=== PATIENT | female | born 1980 | race Caucasian/White ===

== ENCOUNTER 2016-06-05 13:21 | Emergency (ER) ==
[2016-06-05 13:28] VITALS: BP 147/90; TEMP 99.8; BMI 30.9
--- NOTE | 2016-06-05 14:43 | ED.PDOC ---
General ED Provider: Dr. ANABELL FREEMAN Chief Complaint: Non-specific Complaint Stated Complaint: EYE FLOATERS, SPOTS Time Seen by Physician: 13:30 (PROBLEM RESOLVED ON ARRIVAL) Mode of Arrival: Walk-In Information Source: Patient Nursing and Triage Documentation Reviewed and Agree: Yes (IN [facility] PT HAS A BRIEF EPISODE OF SPOTS / FLOATERS ) EENT Complaint Exam - Eye Complaint/Exam Onset/Duration: 1 HR AGO Symptoms Are: Resolved Initial Severity: Mild Current Severity: None Location: Left Character: Denies: Dull, Throbbing, Foreign body sensation Aggravating: Reports: None Alleviating: Reports: None Associated Signs and Symptoms: Denies: Photophobia, Clear drainage, Purulent drainage, Vision impairment, Fever, Swelling Eye Surgical History: Reports: None Penetrating Injury Risk Factors: None Globe Rupture Risk Factors: None Acute Glaucoma Risk Factors: None Visual Field: Normal Extraocular Movement: Normal Orbit Findings: Normal Globe Findings: Intact Lid Findings: Normal Corneal Findings: Clear Fundi: Normal Slit Lamp Used: No Review of Systems - Review Of Systems Constitutional: Reports: No symptoms Eyes: Reports: Blurred vision, Other (FLOATERS ) Ears, Nose, Mouth, Throat: Reports: No symptoms Respiratory: Reports: No symptoms Cardiac: Reports: No symptoms GI: Reports: No symptoms : Reports: No symptoms Musculoskeletal: Reports: No symptoms Skin: Reports: No symptoms Neurological: Reports: No symptoms Endocrine: Reports: No symptoms Hematologic/Lymphatic: Reports: No symptoms All Other Systems: Reviewed and Negative Past Medical History - Past Medical History Previously Healthy: Yes Endocrine: Reports: None Cardiovascular: Reports: None Respiratory: Reports: None Hematological: Reports: None Gastrointestinal: Reports: None Genitourinary: Reports: UTI, Kidney stones, Urosepsis Neuro/Psych: Reports: Anxiety Musculoskeletal: Reports: Back Pain ( chronic back pain) Cancer: Reports: None Last Menstrual Period: may 06 - Surgical History General Surgical History: Reports: Tubal ligation, (c-cection 2012 ) - Family History Family History: Reports: Unknown - Social History Smoking Status: Current every day smoker Hx Substance Use: No Alcohol Screening: None Physical Exam - Physical Exam Appearance: Well-appearing, No pain distress, Well-nourished Eyes: LILA, EOMI, Conjunctiva clear ENT: Ears normal, Nose normal, Oropharynx normal Respiratory: Airway patent, Breath sounds clear, Breath sounds equal, Respirations nonlabored Cardiovascular: RRR, Pulses normal, No rub, No murmur GI/: Soft, Nontender, No masses, Bowel sounds normal, No Organomegaly Musculoskeletal: Normal strength, ROM intact, No edema, No calf tenderness Skin: Warm, Dry, Normal color Neurological: Sensation intact, Motor intact, Reflexes intact, Cranial nerves intact, Alert, Oriented Psychiatric: Affect appropriate, Mood appropriate Critical Care Note - Critical Care Note Total Time (mins): 0 Course - Course Orders, Labs, Meds: Orders Category Date Time Status CT IAC/ORBIT/P.FOSSA W/O CONTR Stat RADS 06/05/16 14:13 Ordered Vital Signs: Temp Pulse Resp BP Pulse Ox 06/05/16 13:21 99.8 F H 84 20 147/90 H 98 Departure - Departure Time of Disposition: 14:43 (REFUSED TO WAIT FOR ORBIT CT) Disposition: AMA Discharge Problem: Left eye strain Instructions: Eye Pain (ED) Condition: Good Pt referred to PMD for follow-up: No Additional Instructions: Please call your Family Physician as soon as possible to schedule a follow-up appointment. Allergies/Adverse Reactions: Allergies morphine Adverse Reaction (Verified 06/05/16 13:30) Home Medications: Ambulatory Orders Alprazolam [Xanax] 0.5 mg PO BID 05/21/13 Disposition Discussed With: Patient
== END 2016-06-05 14:45 | disposition left against medical advice (07) ==
LOC: ED 13:21
DX: H53.10 Unspecified subjective visual disturbances (principal); F17.210 Nicotine dependence, cigarettes, uncomplicated
CPT/HCPCS: 99284

== ENCOUNTER 2016-08-09 12:59 | Emergency (ER) ==
[~2016-08-09 12:59] MED LIST: ATIVAN PO STA
[2016-08-09 13:33] LABS: BASOPHILS % (AUTO) 0.4 % (0.0-3.0); EOSINOPHILS # (AUTO) 0.3 K/ul (0.0-0.7); HEMATOCRIT 41.3 % (37.0-47.0); HEMOGLOBIN 14.5 g/dl (12.0-16.0); IMMATURE GRANULOCYTE % (AUTO) 0.2 % (0.0-5.0); LYMPHOCYTES # (AUTO) 3.6 K/uL (0.60-3.4); LYMPHOCYTES % (AUTO) 39.4 (10.0-50.0); MEAN CORPUSCULAR HEMOGLOBIN 31.1 pg (27.0-31.0); MEAN CORPUSCULAR HGB CONC 35.1 (31.8-35.4); MEAN CORPUSCULAR VOLUME 88.6 fl (81.0-99.0); MONOCYTES # (AUTO) 0.7 K/uL (0.4-2.0); MONOCYTES % (AUTO) 7.7 (0-10); NEUTROPHILS # (AUTO) 4.5 K/ul (2.0-6.9); NEUTROPHILS % (AUTO) 49.3; PLATELET COUNT 366 10^3/uL (140-440); RED BLOOD COUNT 4.66 10^6/ul (4.20-5.40); WHITE BLOOD COUNT 9.22 K/ul (4.6-10.2)
[2016-08-09 13:54] VITALS: TEMP 98.2; BMI 28.3
[2016-08-09 13:57] VITALS: BP 146/91
[2016-08-09 14:20] LABS: ACETAMINOPHEN < 3 ug/ml (10-30); ALANINE AMINOTRANSFERASE 15 U/L (12-78); ALBUMIN 3.6 g/dL (3.4-5.0); ALBUMIN/GLOBULIN RATIO 1.09; ALKALINE PHOSPHATASE 73 U/L (42-98); ANION GAP 11.9; ASPARTATE AMINO TRANSFERASE 15 U/L (15-37); BILIRUBIN,TOTAL 0.58 mg/dL (0.00-1.20); BLOOD UREA NITROGEN 6 mg/dL (7-18); BUN/CREATININE RATIO 7.14; CARBON DIOXIDE 20 mmol/L (21-32); CHLORIDE 112 mmol/L (98-107); CREATININE 0.84 mg/dL (0.60-1.30); GLUCOSE 74 mg/dL (70-110); POTASSIUM 3.9 mmol/L (3.5-5.10); SALICYLATE < 5.0 mg/dL (2.8-20.0); SODIUM 140 mmol/L (136-145); TOTAL PROTEIN 6.9 g/dL (6.4-8.2)
[2016-08-09] MEDS ORDERED: ATIVAN PO STA ×2 (15:54→16:25)
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
[2016-08-09 18:53] LABS: COCAIN SCREEN,URINE NEGATIVE (NEGATIVE)
== END 2016-08-09 18:42 | disposition home or self-care (01) ==
LOC: ED 12:59
DX: R41.82 Altered mental status, unspecified (principal); F19.10 Other psychoactive substance abuse, uncomplicated; F15.10 Other stimulant abuse, uncomplicated; L98.9 Disorder of the skin and subcutaneous tissue, unspecified; F17.210 Nicotine dependence, cigarettes, uncomplicated
CPT/HCPCS: 36415; 80053; 80306; 80307; 84443; 85025; 93005; 93010; 99284

== ENCOUNTER 2016-09-14 14:33 | Emergency (ER) ==
[2016-09-14 14:41] VITALS: BP 155/71; TEMP 100.2; BMI 29.4
--- NOTE | 2016-09-14 14:45 | ED.PDOC ---
General ED Provider: Dr. ANUSHKA PALMA JR Chief Complaint: Hand Pain/Injury Stated Complaint: swelling to hands--is very anxious--tearful--states has had issues with drugs in past but has not "done anything past week"--has very several lesions to legs/arms--has had staph in past[End]4weeks 100.2 106 20 96% 155/71 has sm bruises to legs--also multiple lesions noted--none draining-most prominent lesion left occiput does hace shotty lymph nodes but no cellulitis despite several open sites: pot/meth at times/ "pills" Time Seen by Physician: 14:45 Mode of Arrival: Walk-In Information Source: Patient Exam Limitations: No limitations Nursing and Triage Documentation Reviewed and Agree: No Review of Systems - Review Of Systems Constitutional: Reports: Malaise, Weakness Eyes: Reports: No symptoms Ears, Nose, Mouth, Throat: Reports: No symptoms Respiratory: Reports: No symptoms Cardiac: Reports: No symptoms GI: Reports: No symptoms : Reports: Other (labial bruise(not eval)) Musculoskeletal: Reports: Joint pain (bilateral MCP#2#3), Muscle pain Skin: Reports: Bruising (small benign appearing bruises on thighs), Lesions ( many picked sites none appear infected) Neurological: Reports: Anxiety, Emotional problems, Other Endocrine: Denies: Unexplained weight gain, Unexplained weight loss Hematologic/Lymphatic: Reports: Easy bruising All Other Systems: Other Past Medical History - Past Medical History Previously Healthy: Yes Endocrine: Reports: None Cardiovascular: Reports: None Respiratory: Reports: None Hematological: Reports: None Gastrointestinal: Reports: GERD Genitourinary: Reports: UTI, Kidney stones, Urosepsis, CKD Neuro/Psych: Reports: Anxiety, Other (psychosis) Musculoskeletal: Reports: Back Pain ( chronic back pain) Cancer: Reports: None Last Menstrual Period: 3 weeks ago Other Pertinent Past Medical History: cysts psychosis - Surgical History General Surgical History: Reports: Tubal ligation, (c-cection 2012 ) - Family History Family History: Reports: Unknown - Social History Smoking Status: Current every day smoker, Light tobacco smoker Hx Substance Use: Yes (pot/meth at times/ "pills") Alcohol Screening: None Physical Exam - Physical Exam Appearance: Well-appearing Pain Distress: Mild Eyes: LILA, EOMI, Conjunctiva clear ENT: Ears normal, Nose normal, Oropharynx normal Neck: Supple Respiratory: Airway patent, Breath sounds clear, Breath sounds equal, Respirations nonlabored Cardiovascular: RRR, Pulses normal, No rub, No murmur GI/: Soft, Nontender, No masses, Bowel sounds normal, No Organomegaly Musculoskeletal: Normal strength, ROM intact, No edema, No calf tenderness Skin: Warm, Dry (as noted) Neurological: Sensation intact, Alert, Oriented Psychiatric: Anxious Critical Care Note - Critical Care Note Total Time (mins): 20 Course - Course Hematology/Chemistry: 09/14/16 15:30 Orders, Labs, Meds: Lab Review 09/14/16 15:30 WBC 6.58 RBC 4.61 Hgb 14.4 Hct 41.7 MCV 90.5 MCH 31.2 H MCHC 34.5 RDW Coeff of Lynette 13.5 Plt Count 274 Immature Gran % (Auto) 0.0 Neut % (Auto) 39.0 Lymph % (Auto) 47.9 [place] % (Auto) 7.3 Eos % (Auto) 5.0 Baso % (Auto) 0.8 Immature Gran # (Auto) 0.0 Neut # 2.6 Lymph # 3.2 [place] # 0.5 Eos # 0.3 Baso # 0.1 Orders Category Date Time Status CBC W/ AUTO DIFF Stat LAB 09/14/16 15:30 Completed Vital Signs: Temp Pulse Resp BP Pulse Ox 09/14/16 14:33 100.2 F H 106 H 20 155/71 H 96 Departure - Departure Time of Disposition: 16:06 Disposition: HOME SELF-CARE Discharge Problem: Hand pain, Skin lesions, generalized Instructions: Arthralgia (ED) Condition: Good Pt referred to PMD for follow-up: Yes Additional Instructions: hand symptoms should resolve quickly no evidence serious disease (except behavior history) may rub hands with skin anesthetic like benzocaine aspercreme or menthol but should not change time to resolution may try flexeril for spasms recheck PMD one week for resolution of pain skin lesions appear to be healing well do not pick , may use warm soaks if rising to surface no antibiotics at this time Prescriptions: Naproxen [Naprosyn] 500 mg PO Q12HR PRN #30 tablet PRN Reason: PAIN Cyclobenzaprine HCl [Flexeril] 5 mg PO TID PRN #15 tablet PRN Reason: Spasms Allergies/Adverse Reactions: Allergies morphine Adverse Reaction (Verified 09/14/16 14:44) Home Medications: Ambulatory Orders Alprazolam [Xanax] 0.5 mg PO BID 05/21/13 Cyclobenzaprine HCl [Flexeril] 5 mg PO TID PRN #15 tablet 09/14/16 Naproxen [Naprosyn] 500 mg PO Q12HR PRN #30 tablet 09/14/16
[2016-09-14 15:36] LABS: BASOPHILS # (AUTO) 0.1 K/uL (0-0.2); BASOPHILS % (AUTO) 0.8 % (0.0-3.0); EOSINOPHILS # (AUTO) 0.3 K/ul (0.0-0.7); HEMATOCRIT 41.7 % (37.0-47.0); HEMOGLOBIN 14.4 g/dl (12.0-16.0); LYMPHOCYTES # (AUTO) 3.2 K/uL (0.60-3.4); LYMPHOCYTES % (AUTO) 47.9 (10.0-50.0); MEAN CORPUSCULAR HEMOGLOBIN 31.2 pg (27.0-31.0); MEAN CORPUSCULAR HGB CONC 34.5 (31.8-35.4); MEAN CORPUSCULAR VOLUME 90.5 fl (81.0-99.0); MONOCYTES # (AUTO) 0.5 K/uL (0.4-2.0); MONOCYTES % (AUTO) 7.3 (0-10); NEUTROPHILS # (AUTO) 2.6 K/ul (2.0-6.9); PLATELET COUNT 274 10^3/uL (140-440); RED BLOOD COUNT 4.61 10^6/ul (4.20-5.40); WHITE BLOOD COUNT 6.58 K/ul (4.6-10.2)
== END 2016-09-14 16:40 | disposition home or self-care (01) ==
LOC: ED 14:33
DX: L98.9 Disorder of the skin and subcutaneous tissue, unspecified (principal); M79.643 Pain in unspecified hand; S80.12XA Contusion of left lower leg, initial encounter; S80.11XA Contusion of right lower leg, initial encounter; F17.210 Nicotine dependence, cigarettes, uncomplicated
CPT/HCPCS: 36415; 85025; 99282

== ENCOUNTER 2016-10-01 20:42 | Emergency (ER) ==
[2016-10-01 20:49] VITALS: BP 128/74; TEMP 98.6; BMI 29.2
--- NOTE | 2016-10-01 21:10 | ED.PDOC ---
General ED Provider: Dr. TONY DELAROSA Chief Complaint: Rash Stated Complaint: Edin is a36 year old who compalins of sores on legs, arms, head, back, butt for week She thought it was lice and still thinks it is laying eggs on her hair. She used OTC nix x 3 but the rash has not improved. Time Seen by Physician: 21:10 Mode of Arrival: Walk-In Information Source: Patient Exam Limitations: No limitations Primary Care Provider: EN GIBSON Nursing and Triage Documentation Reviewed and Agree: Yes Skin Complaint Exam - Skin Rash/Itching Complaint/Exam Onset/Duration: weeks Symptoms Are: Still present Initial Severity: Moderate Current Severity: Severe Location: generalized Potential Exposures: Reports: Mites Prior Treatment: Nix x 3 Aggravating: Reports: None Alleviating: Reports: None Associated Signs and Symptoms: Denies: Difficulty breathing, Fever, Chills Skin Findings: Present: Maculae, Papules, Pustules Differential Diagnoses: Contact Dermatitis, Scabies, Urticaria Review of Systems - Review Of Systems Constitutional: Reports: No symptoms Eyes: Reports: No symptoms Ears, Nose, Mouth, Throat: Reports: No symptoms Respiratory: Reports: No symptoms Cardiac: Reports: No symptoms GI: Reports: No symptoms : Reports: No symptoms Musculoskeletal: Reports: No symptoms Skin: Reports: Rash Neurological: Reports: Anxiety Endocrine: Reports: No symptoms Hematologic/Lymphatic: Reports: No symptoms All Other Systems: Reviewed and Negative Past Medical History - Past Medical History Previously Healthy: Yes Endocrine: Reports: None Cardiovascular: Reports: None Respiratory: Reports: None Hematological: Reports: None Gastrointestinal: Reports: GERD Genitourinary: Reports: UTI, Kidney stones, Urosepsis, CKD Neuro/Psych: Reports: Anxiety, Other (psychosis) Musculoskeletal: Reports: Back Pain ( chronic back pain) Cancer: Reports: None Last Menstrual Period: yesterday Other Pertinent Past Medical History: cysts psychosis - Surgical History General Surgical History: Reports: Tubal ligation, (c-cection 2012 ) - Family History Family History: Reports: Unknown - Social History Smoking Status: Current every day smoker, Light tobacco smoker Hx Substance Use: Yes (pot/meth at times/ "pills") Alcohol Screening: None - Immunizations Tetanus Shot up to Date: Yes Physical Exam - Physical Exam Appearance: Well-appearing Eyes: LILA, EOMI, Conjunctiva clear Neck: Supple Respiratory: Airway patent, Breath sounds clear, Breath sounds equal, Respirations nonlabored Cardiovascular: RRR, Pulses normal, No rub, No murmur Skin: Warm, Dry Psychiatric: Anxious, Depressed Critical Care Note - Critical Care Note Total Time (mins): 0 Course - Course Orders, Labs, Meds: Orders Category Date Time Status Methylprednisolone Sod Succ/Pf [Solu-Medrol 125 mg] MEDS 10/01/16 21:55 Discontinued 125 mg IM ONCE STA Medications Discontinued Medications Generic Name Dose Route Start Last Admin Trade Name Druq PRN Reason Stop Dose Admin Methylprednisolone Sodium Succinate 125 mg 10/01/16 21:55 10/01/16 22:28 Solu-Medrol 125 Mg IM 10/01/16 21:56 125 mg ONCE STA Administration Vital Signs: Temp Pulse Resp BP Pulse Ox 10/01/16 20:46 98.6 F 86 20 128/74 98 Departure - Departure Time of Disposition: 22:39 Disposition: HOME SELF-CARE Discharge Problem: Dermatitis Instructions: Dermatitis (ED) Condition: Stable Pt referred to PMD for follow-up: Yes Additional Instructions: Take medications as prescribed. Follow up with PCP in 3 days. Prescriptions: Hydroxyzine HCl 25 mg PO TID PRN #25 tablet PRN Reason: Itching Allergies/Adverse Reactions: Allergies morphine Adverse Reaction (Verified 09/14/16 14:44) Home Medications: Ambulatory Orders Naproxen [Naprosyn] 500 mg PO Q12HR PRN #30 tablet 09/14/16 Hydroxyzine HCl 25 mg PO TID PRN #25 tablet 10/01/16 Disposition Discussed With: Patient
[2016-10-01] MEDS ORDERED: SOLU-MEDROL 125 MG IM STA (21:55)
== END 2016-10-01 22:54 | disposition home or self-care (01) ==
LOC: ED 20:42
DX: L30.9 Dermatitis, unspecified (principal); F17.210 Nicotine dependence, cigarettes, uncomplicated
CPT/HCPCS: 96372; 99282

== ENCOUNTER 2016-10-16 19:08 | Emergency (ER) ==
[2016-10-16 19:14] VITALS: BP 170/83; TEMP 98.2; BMI 26.5
[2016-10-16 19:29] LABS: ADD URINE MICROSCOPIC NO; BILIRUBIN,URINE Negative (NEGATIVE); KETONES,URINE Negative (NEGATIVE); LEUKOCYTE ESTERASE ,URINE Negative (NEGATIVE); NITRITE,URINE Negative (NEGATIVE); PROTEIN,URINE Negative (NEGATIVE); URINE, BLOOD Negative (NEGATIVE)
[2016-10-16 19:31] LABS: URINE PREGNANCY INTERNAL QC INTERNAL QC VALID
[2016-10-16 19:32] LABS: BASOPHILS # (AUTO) 0.1 K/uL (0-0.2); BASOPHILS % (AUTO) 0.4 % (0.0-3.0); EOSINOPHILS # (AUTO) 0.3 K/ul (0.0-0.7); EOSINOPHILS % (AUTO) 2.4 % (0.0-7.0); HEMATOCRIT 45.5 % (37.0-47.0); HEMOGLOBIN 15.6 g/dl (12.0-16.0); IMMATURE GRANULOCYTE % (AUTO) 0.3 % (0.0-5.0); LYMPHOCYTES # (AUTO) 2.6 K/uL (0.60-3.4); LYMPHOCYTES % (AUTO) 19.8 (10.0-50.0); MEAN CORPUSCULAR HGB CONC 34.3 (31.8-35.4); MEAN CORPUSCULAR VOLUME 90.3 fl (81.0-99.0); MONOCYTES % (AUTO) 7.6 (0-10); NEUTROPHILS # (AUTO) 9.1 K/ul (2.0-6.9); NEUTROPHILS % (AUTO) 69.5; PLATELET COUNT 316 10^3/uL (140-440); RED BLOOD COUNT 5.04 10^6/ul (4.20-5.40); WHITE BLOOD COUNT 13.15 K/ul (4.6-10.2)
[2016-10-16 19:40] LABS: COCAIN SCREEN,URINE NEGATIVE (NEGATIVE)
[2016-10-16 19:57] LABS: ALBUMIN 3.9 g/dL (3.4-5.0); ALBUMIN/GLOBULIN RATIO 1.11; ANION GAP 10.1; BILIRUBIN,TOTAL 0.54 mg/dL (0.00-1.20); BUN/CREATININE RATIO 10.66; CALCIUM 9.9 mg/dL (8.2-10.2); CREATININE 0.75 mg/dL (0.60-1.30); POTASSIUM 4.1 mmol/L (3.5-5.10); TOTAL PROTEIN 7.4 g/dL (6.4-8.2)
--- NOTE | 2016-10-16 20:17 | DI ---
EXAM: Chest PA and lateral HISTORY: Cough. COMPARRISON: 04/28/2012 FINDINGS: The heart is normal in size. Pulmonary vascularity is within normal limits. No focal airsp john opacity or pleural effusion is seen. Minimal thoracic multilevel endplate osteophytosis is seen. IMPRESSION: No acute cardiopulmonary findings.
--- NOTE | 2016-10-16 20:18 | CT ---
EXAM: CT of the head without contrast History: Headache. Technique: Multiplanar CT images through the head were obtained without the administration of IV co ntrast Findings: Mild mucosal thickening of the ethmoid air cells. Mastoid air cells are generally clear. No acute calvarial abnormalities. Intracranially the ventricular and cisternal spaces are normal in size, shape and configuration for a patient of this age. No dominant mass or midline shift. No hydrocephalous. No acute intracrania l hemorrhage or abnormal extraaxial fluid collections. 0.9 cm right parotid nodule. There is subcutaneous edema of the upper posterior neck and suboccipita l scalp with a few small sub-centimeter lymph nodes. Impression: 1. No acute intracranial process. 2. Mild ethmoid sinus disease. 3. Right parotid nodule could be benign or malignant. Follow-up / further evaluation recommended. 4. There is subcutaneous edema of the upper posterior neck and suboccipital scalp with a few small sub-centimeter lymph nodes.
--- NOTE | 2016-10-16 20:28 | ED.PDOC ---
General ED Provider: Dr. ERIC LINDSEY-ER Chief Complaint: Non-specific Complaint Stated Complaint: david got this rash--my bf treated for scabies and i have a staph infection--im very nervous about all of this Time Seen by Physician: 19:10 Mode of Arrival: Walk-In Information Source: Patient Exam Limitations: No limitations Primary Care Provider: EN GIBSON Nursing and Triage Documentation Reviewed and Agree: Yes Skin Complaint Exam - Skin Rash/Itching Complaint/Exam Onset/Duration: several days Symptoms Are: Still present Initial Severity: Mild Current Severity: Mild Location: arms and neck Potential Exposures: Reports: Scabies Aggravating: Reports: None Alleviating: Reports: None Associated Signs and Symptoms: Denies: Difficulty breathing, Fever, Chills Skin Findings: Present: Pustules, Lesions Differential Diagnoses: Scabies, Other Review of Systems - Review Of Systems Constitutional: Reports: No symptoms Eyes: Reports: No symptoms Ears, Nose, Mouth, Throat: Reports: No symptoms Respiratory: Reports: No symptoms Cardiac: Reports: No symptoms GI: Reports: No symptoms : Reports: No symptoms Musculoskeletal: Reports: No symptoms Skin: Reports: Lumps, Rash Neurological: Reports: No symptoms Endocrine: Reports: No symptoms Hematologic/Lymphatic: Reports: No symptoms All Other Systems: Reviewed and Negative Past Medical History - Past Medical History Previously Healthy: Yes Endocrine: Reports: None Cardiovascular: Reports: None Respiratory: Reports: None Hematological: Reports: None Gastrointestinal: Reports: GERD Genitourinary: Reports: UTI, Kidney stones, Urosepsis, CKD Neuro/Psych: Reports: Anxiety, Other (psychosis) Musculoskeletal: Reports: Back Pain ( chronic back pain) Cancer: Reports: None Last Menstrual Period: 2 weeks ago Other Pertinent Past Medical History: cysts psychosis - Surgical History General Surgical History: Reports: Tubal ligation, (c-cection 2012 ) - Family History Family History: Reports: Unknown - Social History Smoking Status: Current every day smoker, Light tobacco smoker Hx Substance Use: Yes (pot/meth at times/ "pills") Alcohol Screening: None Lives: With family Physical Exam - Physical Exam Appearance: Well-appearing, No pain distress, Well-nourished Pain Distress: Mild Eyes: LILA, EOMI, Conjunctiva clear ENT: Ears normal, Nose normal, Oropharynx normal Neck: Supple Respiratory: Airway patent Cardiovascular: RRR, Pulses normal, No rub, No murmur GI/: Soft, Nontender, No masses, Bowel sounds normal, No Organomegaly Musculoskeletal: Normal strength Skin: Warm Neurological: Sensation intact Psychiatric: Affect appropriate, Mood appropriate, Anxious Interpretation - Radiology Interpretation Radiology Interpretation By: Radiologist Radiology Results: Negative Exam Interpreted: CXR, CT Scan Critical Care Note - Critical Care Note Total Time (mins): 0 Course - Course Hematology/Chemistry: 10/16/16 19:24 10/16/16 19:36 Orders, Labs, Meds: Lab Review 10/16/16 10/16/16 10/16/16 19:20 19:24 19:35 WBC 13.15 H RBC 5.04 Hgb 15.6 Hct 45.5 MCV 90.3 MCH 31.0 MCHC 34.3 RDW Coeff of Lynette 13.4 Plt Count 316 Immature Gran % (Auto) 0.3 Neut % (Auto) 69.5 Lymph % (Auto) 19.8 Luce % (Auto) 7.6 Eos % (Auto) 2.4 Baso % (Auto) 0.4 Immature Gran # (Auto) 0.0 Neut # 9.1 H Lymph # 2.6 Luce # 1.0 Eos # 0.3 Baso # 0.1 Sodium Potassium Chloride Carbon Dioxide Anion Gap BUN Creatinine Estimated GFR (MDRD) BUN/Creatinine Ratio Glucose Calcium Total Bilirubin AST ALT Alkaline Phosphatase Ammonia 21 Total Protein Albumin Globulin Albumin/Globulin Ratio TSH 0.767 Urine Color Yellow Urine Clarity Clear Urine pH 6.0 Ur Specific Tynan 1.010 Urine Protein Negative Urine Glucose (UA) Negative Urine Ketones Negative Urine Blood Negative Urine Nitrite Negative Urine Bilirubin Negative Urine Urobilinogen 0.2 Ur Leukocyte Esterase Negative Urine Test Negative Urine Opiates Screen Negative Ur Oxycodone Screen Negative Urine Methadone Screen Negative Ur Propoxyphene Screen Negative Ur Barbiturates Screen Negative U Tricyclic Antidepress Negative Ur Phencyclidine Scrn Negative Ur Amphetamine Screen Positive U Methamphetamines Scrn Positive U Benzodiazepines Scrn Negative Urine Cocaine Screen Negative U Cannabinoids Screen Positive 10/16/16 19:36 WBC RBC Hgb Hct MCV MCH MCHC RDW Coeff of Lynette Plt Count Immature Gran % (Auto) Neut % (Auto) Lymph % (Auto) Luce % (Auto) Eos % (Auto) Baso % (Auto) Immature Gran # (Auto) Neut # Lymph # Luce # Eos # Baso # Sodium 138 Potassium 4.1 Chloride 108 H Carbon Dioxide 24 Anion Gap 10.1 BUN 8 Creatinine 0.75 Estimated GFR (MDRD) 88.00 BUN/Creatinine Ratio 10.66 Glucose 86 Calcium 9.9 Total Bilirubin 0.54 AST 16 ALT 15 Alkaline Phosphatase 71 Ammonia Total Protein 7.4 Albumin 3.9 Globulin 3.5 Albumin/Globulin Ratio 1.11 TSH Urine Color Urine Clarity Urine pH Ur Specific Tynan Urine Protein Urine Glucose (UA) Urine Ketones Urine Blood Urine Nitrite Urine Bilirubin Urine Urobilinogen Ur Leukocyte Esterase Urine Test Urine Opiates Screen Ur Oxycodone Screen Urine Methadone Screen Ur Propoxyphene Screen Ur Barbiturates Screen U Tricyclic Antidepress Ur Phencyclidine Scrn Ur Amphetamine Screen U Methamphetamines Scrn U Benzodiazepines Scrn Urine Cocaine Screen U Cannabinoids Screen Orders Category Date Time Status AMMONIA Stat LAB 10/16/16 19:35 Completed BLOOD CULTURE Stat LAB 10/16/16 19:35 Received CBC W/ AUTO DIFF Stat LAB 10/16/16 19:24 Completed COMPREHENSIVE METABOLIC PANEL Stat LAB 10/16/16 19:36 Completed DRUG SCREEN, URINE, RAPID Stat LAB 10/16/16 19:20 Completed TSH [THYROID STIMULATING HORMONE] Stat LAB 10/16/16 19:24 Completed URINALYSIS C & S IF INDICATED Stat LAB 10/16/16 19:20 Completed URINE Stat LAB 10/16/16 19:20 Completed VITAMIN B12 Stat LAB 10/16/16 19:[address] HEAD W/O CONTRAST Stat RADS 10/16/16 19:19 Completed CXR [CHEST, 2 VIEWS PA & LAT] Stat RADS 10/16/16 19:19 Completed Vital Signs: Temp Pulse Resp BP Pulse Ox 10/16/16 19:09 98.2 F 105 H 16 170/83 H 99 Departure - Departure Time of Disposition: 20:29 Disposition: HOME SELF-CARE Discharge Problem: Scabies, Impetigo, Anxiety, Parotid gland fullness Instructions: Acute Rash (ED) Condition: Good Pt referred to PMD for follow-up: Yes Additional Instructions: permethrin cream apply from chin to toes and leave on for 16hrs and wash off-- may repeat in 5 days...bactrim ds bid x 7days...xanax 0.5mg q daily prn anxiety #10---f/u with clinic next week for dr morales referral the parotid mass Allergies/Adverse Reactions: Allergies morphine Adverse Reaction (Verified 10/16/16 19:14) Home Medications: Ambulatory Orders 1 [No Reported Medications] 10/16/16 Disposition Discussed With: Patient, Family
== END 2016-10-16 20:50 | disposition home or self-care (01) ==
LOC: ED 19:08
DX: B86 Scabies (principal); L01.00 Impetigo, unspecified; K11.9 Disease of salivary gland, unspecified; F41.9 Anxiety disorder, unspecified; F17.210 Nicotine dependence, cigarettes, uncomplicated
CPT/HCPCS: 36415; 80053; 80306; 81001; 81025; 82140; 82607; 84443; 85025; 87040; 99283

== ENCOUNTER 2016-12-16 13:02 | Outpatient (CLI) ==
[2016-12-16 13:25] LABS: BASOPHILS # (AUTO) 0.1 K/uL (0-0.2); BASOPHILS % (AUTO) 0.5 % (0.0-3.0); EOSINOPHILS # (AUTO) 0.3 K/ul (0.0-0.7); HEMATOCRIT 40.1 % (37.0-47.0); HEMOGLOBIN 13.7 g/dl (12.0-16.0); IMMATURE GRANULOCYTE % (AUTO) 0.2 % (0.0-5.0); LYMPHOCYTES # (AUTO) 2.6 K/uL (0.60-3.4); LYMPHOCYTES % (AUTO) 28.3 (10.0-50.0); MEAN CORPUSCULAR HEMOGLOBIN 31.2 pg (27.0-31.0); MEAN CORPUSCULAR HGB CONC 34.2 (31.8-35.4); MEAN CORPUSCULAR VOLUME 91.3 fl (81.0-99.0); MONOCYTES # (AUTO) 0.7 K/uL (0.4-2.0); MONOCYTES % (AUTO) 7.7 (0-10); NEUTROPHILS # (AUTO) 5.5 K/ul (2.0-6.9); NEUTROPHILS % (AUTO) 60.3; PLATELET COUNT 326 10^3/uL (140-440); RED BLOOD COUNT 4.39 10^6/ul (4.20-5.40); WHITE BLOOD COUNT 9.19 K/ul (4.6-10.2)
[2016-12-16 13:31] LABS: ALBUMIN 3.6 g/dL (3.4-5.0); ALBUMIN/GLOBULIN RATIO 1.29; ANION GAP 13.9; BILIRUBIN,TOTAL 0.3 mg/dL (0.00-1.20); BILIRUBIN,URINE Negative (NEGATIVE); BUN/CREATININE RATIO 7.46; CALCIUM 9.7 mg/dL (8.2-10.2); CREATININE 0.67 mg/dL (0.60-1.30); KETONES,URINE Negative (NEGATIVE); LEUKOCYTE ESTERASE ,URINE Negative (NEGATIVE); NITRITE,URINE Negative (NEGATIVE); PH,URINE 5.5 (5-9); POTASSIUM 3.9 mmol/L (3.5-5.10); PROTEIN,URINE Negative (NEGATIVE); TOTAL PROTEIN 6.4 g/dL (6.4-8.2); URINE, BLOOD Negative (NEGATIVE)
[2016-12-16 13:33] LABS: ADD URINE MICROSCOPIC NO
[2016-12-16 13:57] LABS: COCAIN SCREEN,URINE NEGATIVE (NEGATIVE)
[2016-12-16 14:01] LABS: ERYTHROCYTE SEDIMENTATION RATE 8 mm/hr (0-20); ESR INTERNAL QC INTERNAL QC VALID
--- NOTE | 2016-12-16 14:48 | CT ---
EXAM: CT of the head with and without contrast History: Altered mental status, delusional Comparison: Head CT 10/16/2016 Technique: Multiplanar CT images through the head were obtained and without the administration of I V contrast Findings: Partially visualized mucous retention cyst or polyp within the left maxillary sinus. No air-fluid levels seen within the sinuses. Mastoid air cells are clear in general. No acute calvari al abnormalities. Intracranially the ventricular and cisternal spaces are normal in size, shape and configuration for a patient of this age. No dominant mass or midline shift. No hydrocephalous. No acute intracrania l hemorrhage or abnormal extraaxial fluid collections. No abnormal contrast enhancement. Impression: No acute intracranial process and no abnormal contrast enhancement. Mucous retention c yst or polyp within the left maxillary sinus.
--- NOTE | 2016-12-16 15:04 | CT ---
EXAM: CT of the soft tissue neck with contrast History: Parotiditis. Comparison: Head CT 10/16/2016 Technique: Multiplanar CT images through the head were obtained following administration of IV cont rast Findings: Orbits are intact. Visualized intracranial contents are unremarkable. No parotid inflam mation. No change in the 9 mm soft tissue nodule within the right parotid gland. Left parotid glan d is unremarkable. Submandibular glands are not inflamed. The visualized upper lungs are free of c onsolidation. Mild paraseptal emphysema within the upper lungs. No discrete thyroid nodules identi fied by CT. No peritonsillar inflammation. Epiglottis is not thickened. No prevertebral soft tiss ue swelling. No acute osseous abnormalities. 2 cm mucous retention cyst or polyp within the left m axillary sinus. Mastoid air cells are generally clear. No pathologically enlarged lymph nodes. Impression: 1. No acute findings within the soft tissue neck. 2. Stable 9 mm right parotid soft tissue nodule. 3. Left maxillary sinus mucous retention cyst or polyp. 4. Mild paraseptal emphysema within the upper lungs.
[2016-12-17 13:11] LABS: ANTI-NUCLEAR ANTIBODY SCREEN Negative (Negative)
== END 2016-12-16 13:03 | disposition home or self-care (01) ==
LOC: RAD 13:02
PROVIDERS: ATTEND Nurse Practitioner Family
DX: F22 Delusional disorders (principal); S00.01XA Abrasion of scalp, initial encounter; K11.20 Sialoadenitis, unspecified; W57.XXXA Bitten or stung by nonvenomous insect and other nonvenomous arthropods, initial encounter
CPT/HCPCS: 36415; 80053; 80306; 81001; 85025; 85651; 86038; 86617; 86757; 87798

== ENCOUNTER 2017-04-06 12:57 | Outpatient (CLI) ==
[2017-04-06 13:05] LABS: BASOPHILS # (AUTO) 0.1 K/uL (0-0.2); BASOPHILS % (AUTO) 0.7 % (0.0-3.0); EOSINOPHILS # (AUTO) 0.3 K/ul (0.0-0.7); EOSINOPHILS % (AUTO) 2.7 % (0.0-7.0); HEMOGLOBIN 14.7 g/dl (12.0-16.0); IMMATURE GRANULOCYTE % (AUTO) 0.4 % (0.0-5.0); LYMPHOCYTES # (AUTO) 2.8 K/uL (0.60-3.4); LYMPHOCYTES % (AUTO) 30.6 (10.0-50.0); MEAN CORPUSCULAR HEMOGLOBIN 31.5 pg (27.0-31.0); MEAN CORPUSCULAR HGB CONC 34.2 (31.8-35.4); MEAN CORPUSCULAR VOLUME 92.1 fl (81.0-99.0); MONOCYTES # (AUTO) 0.6 K/uL (0.4-2.0); MONOCYTES % (AUTO) 6.8 (0-10); NEUTROPHILS # (AUTO) 5.4 K/ul (2.0-6.9); NEUTROPHILS % (AUTO) 58.8; PLATELET COUNT 314 10^3/uL (140-440); RED BLOOD COUNT 4.67 10^6/ul (4.20-5.40); WHITE BLOOD COUNT 9.22 K/ul (4.6-10.2)
[2017-04-06 13:20] LABS: ALBUMIN 3.6 g/dL (3.4-5.0); ALBUMIN/GLOBULIN RATIO 1.06; ANION GAP 11.3; BILIRUBIN,TOTAL 0.22 mg/dL (0.00-1.20); BUN/CREATININE RATIO 11.29; CALCIUM 9.6 mg/dL (8.2-10.2); CREATININE 0.62 mg/dL (0.60-1.30); POTASSIUM 4.3 mmol/L (3.5-5.10)
== END 2017-04-06 12:58 | disposition home or self-care (01) ==
LOC: LAB 12:57
PROVIDERS: ATTEND Nurse Practitioner Family
DX: F42.8 Other obsessive-compulsive disorder (principal); L29.9 Pruritus, unspecified; R23.9 Unspecified skin changes
CPT/HCPCS: 36415; 80053; 80307; 85025

== ENCOUNTER 2017-05-30 15:33 | Outpatient (CLI) | END 2017-05-30 15:34 | disposition home or self-care (01) | LOC: LAB 15:33 | PROVIDERS: ATTEND Nurse Practitioner | DX: R21 Rash and other nonspecific skin eruption (principal) | CPT/HCPCS: 36415; 86617; 86757 ==

== ENCOUNTER 2017-06-29 06:55 | Emergency (ER) ==
[2017-06-29 07:13] VITALS: BP 135/87; TEMP 99.5; BMI 30.8
--- NOTE | 2017-06-29 07:45 | ED.PDOC ---
General ED Provider: Dr. ERIC SANCHES Chief Complaint: Non-specific Complaint Stated Complaint: "I feel infectious" Concerned over having Scabies, a parasite or worms. Thinks she saw a worm like structure under her skin and came out. Brings in 3 mm circular brown crusting substance that has been placed between tape and secured in a plastic bag. State it fell out of a skin lesion on her upper back. States her boyfriend an RN saw it and photographed the item. Has been treated at multiple facilities and physicians offices including [facility] in [facility] with Bipolar-Schizoaffective disorder but no treatment. Was apparently hospialized at one time but discharged without treatment. Previously on Xanax but this was stopped when she was discharged by another provider associated with [facility]. No complaints of low back pain. Per [facility] intake nurse, "STATES HAS PAIN/SWOLLEN AREA AT BASE OF NECK ON THE BACKSIDE THAT SHE NOTICED YESTERDAY. STATES SOME TYPE OF "DEBRIS" FELL OUT OF IT STATES SHE FEELS INFECTIOUS/HAS AN INFECTION. 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 Time Seen by Physician: 07:40 Mode of Arrival: Walk-In Information Source: Patient Exam Limitations: No limitations [facility] and Triage Documentation Reviewed and Agree: Yes Reviewed sepsis parameters & appropriate labs ordered?: Yes System Inflammatory Response Syndrome: Not Applicable Sepsis Protocol: For patient's 13 years and over: Temp is 96.8 and below OR 101 and greater Pulse >90 BPM Resp >20/minute Acutely Altered Mental Status Are patient's symptoms suggestive of a new infection, such as: -Pneumonia -Skin, Soft Tissue -Endocarditis -UTI -Bone, Joint Infection -Implantable Device -Acute Abdominal Infection -Wound Infection -Meningitis -Blood Stream Catheter Infection -Unknown System Inflammatory Response Syndrome: Not Applicable Miscellaneous Complaint Exam - Complex/Multi-System Complaint/Exam Symptoms Are: Still present Episodes Lasting: Days Initial Severity: Mild Current Severity: Mild Location of Pain: No Pain Associated Signs and Symptoms: Reports: Agitation (States previoulsy became angyr and agitated), Recent medication changes. Denies: Decreased responsiveness, Hemoptysis, Chest pain, Palpitations, Edema, Nausea, Vomiting, Diarrhea, Abdominal pain, Back pain, Dysuria, Hematemesis, Melena, Decreased oral intake, Fever, Diaphoresis, Anticoagulation Therapy Recent Echo/LV Function: No JVD Present: No Tachypnea Present: No Stridor Present: No Abdominal Findings: Present: Normal findings Meningeal Signs Positive: No Focal Weakness: Present: None Focal Sensory Loss: Present: None Gait: Normal Gag Reflex Present: Yes Skin Findings: Present: Rash Joint Swelling Present: No Review of Systems - Review Of Systems Constitutional: Reports: No symptoms Eyes: Reports: No symptoms Ears, Nose, Mouth, Throat: Reports: No symptoms Respiratory: Reports: No symptoms Cardiac: Reports: No symptoms GI: Reports: No symptoms : Reports: No symptoms Musculoskeletal: Reports: No symptoms Skin: Reports: Lesions, Rash Neurological: Reports: Anxiety, Emotional problems, Other (hx of dx bipolar / schizoaffective disorder/anxiety) Endocrine: Reports: No symptoms Hematologic/Lymphatic: Reports: No symptoms All Other Systems: Reviewed and Negative Past Medical History - Past Medical History Previously Healthy: Yes Endocrine: Reports: None Cardiovascular: Reports: None Respiratory: Reports: None Hematological: Reports: None Gastrointestinal: Reports: GERD Genitourinary: Reports: UTI, Kidney stones, Urosepsis, CKD Neuro/Psych: Reports: Anxiety, Other (psychosis) Musculoskeletal: Reports: Back Pain ( chronic back pain) Cancer: Reports: None Last Menstrual Period: 06/11/17 Other Pertinent Past Medical History: cysts psychosis - Surgical History General Surgical History: Reports: Tubal ligation, (c-cection 2012 ) - Family History Family History: Reports: Unknown - Social History Smoking Status: Current every day smoker, Light tobacco smoker Hx Substance Use: Yes (pot/meth at times/ "pills") Alcohol Screening: None - Immunizations Tetanus Shot up to Date: (UNKNOWN) Physical Exam - Physical Exam Appearance: Well-appearing Ill-appearing: Mild Pain Distress: None Eyes: LILA, EOMI, Conjunctiva clear ENT: Ears normal, Nose normal, Oropharynx normal Neck: Supple Respiratory: Airway patent, Breath sounds clear, Breath sounds equal Cardiovascular: RRR, Pulses normal, No rub, No murmur GI/: Soft, Nontender, No masses, Bowel sounds normal Musculoskeletal: Normal strength, ROM intact, No edema Skin: Warm, Dry (Multiple areas or excoriation bilat forearm and appearance of scratch koehler, Similar rash across upper back. NO Areas of acute erythrema or cystic lesions. No draining lesions) Re-Evaluation - Re-Evaluation Time of Re-Evaluation: 11:00 Status: Unchanged Vital Signs Stable: Yes Skin: Other Neuro: Alert and Oriented X3 Critical Care Note - Critical Care Note Total Time (mins): 0 Course - Course Hematology/Chemistry: 06/29/17 08:25 06/29/17 08:25 Orders, Labs, Meds: Lab Review 06/29/17 06/29/17 06/29/17 08:25 08:25 08:25 WBC 8.25 RBC 4.45 Hgb 13.9 Hct 40.5 MCV 91.0 MCH 31.2 H MCHC 34.3 RDW Coeff of Lynette 13.1 Plt Count 284 Immature Gran % (Auto) 0.2 Neut % (Auto) 43.9 Lymph % (Auto) 42.9 Scott % (Auto) 9.7 Eos % (Auto) 2.8 Baso % (Auto) 0.5 Immature Gran # (Auto) 0.0 Neut # (Auto) 3.6 Lymph # (Auto) 3.5 H Scott # (Auto) 0.8 Eos # (Auto) 0.2 Baso # (Auto) 0.0 ESR 2 Sodium 140 Potassium 3.5 Chloride 106 Carbon Dioxide 25 Anion Gap 12.5 BUN 5 L Creatinine 0.66 Estimated GFR (MDRD) 102.00 BUN/Creatinine Ratio 7.57 Glucose 86 Calcium 10.4 H Total Bilirubin 0.5 AST 15 ALT 17 Alkaline Phosphatase 63 Total Protein 7.4 Albumin 3.8 Globulin 3.6 Albumin/Globulin Ratio 1.06 TSH 1.198 Free T4 1.04 Orders Category Date Time Status CBC W/ AUTO DIFF Stat LAB 06/29/17 08:25 Completed CMP [COMPREHENSIVE METABOLIC PANEL] Stat LAB 06/29/17 08:25 Completed ESR Stat LAB 06/29/17 08:25 Completed FREE T4 (FREE THYROXINE) Stat LAB 06/29/17 08:25 Completed THYROID STIMULATING HORMONE Stat LAB 06/29/17 08:25 Completed UA [URINALYSIS C & S IF INDICATED] Stat LAB 06/29/17 08:20 Uncollected Vital Signs: Temp Pulse Resp BP Pulse Ox 06/29/17 06:56 99.5 F 77 20 135/87 99 Departure - Departure Time of Disposition: 11:10 Disposition: HOME SELF-CARE Discharge Problem: Rash and nonspecific skin eruption, Anxiety, H/O scabies Instructions: Dermatitis (ED), Scabies (ED), Mood Disorders (ED), Anxiety (ED) Condition: Good Pt referred to PMD for follow-up: Yes (Follow up PCP) IPMP verified?: No Prescriptions: Doxycycline Hyclate 100 mg PO BID #20 tablet. Permethrin [Elimite Cream] 1 applic TP ONCE #1 tube Allergies/Adverse Reactions: Allergies morphine Adverse Reaction (Verified 06/29/17 07:13) "MAKES ME CRAZY" Home Medications: Ambulatory Orders Doxycycline Hyclate 100 mg PO BID #20 tablet. 06/29/17 Permethrin [Elimite Cream] 1 applic TP ONCE #1 tube 06/29/17 Disposition Discussed With: Patient, Family Additional Comments Additional Comments: State previoulsy treated for RMSF this past summer
== END 2017-06-29 11:39 | disposition home or self-care (01) ==
LOC: ED 06:55
DX: R21 Rash and other nonspecific skin eruption (principal); F41.9 Anxiety disorder, unspecified; F17.210 Nicotine dependence, cigarettes, uncomplicated
CPT/HCPCS: 36415; 80053; 84439; 84443; 85025; 85651; 99283